=== PATIENT | male | born 1975 | race Caucasian/White ===

== ENCOUNTER 2016-08-04 05:53 | Inpatient (IN) | payer OTHER ==
[2016-08-04] MEDS ORDERED: ALBUTEROL SULFATE 0.083% NEB 2.5 MG/3 ML AMPUL NEB ONE ×2 (06:00→10:06)
[2016-08-04] MEDS ORDERED: IPRATROPIUM/ALBUTEROL 0.5-2.5 MG/3 ML AMPUL NEB ONE ×2 (06:00→07:44)
[2016-08-04] MEDS ORDERED: METHYLPREDNISOLONE INJ 125 MG/2 ML SDV ONE (06:02)
[2016-08-04] MEDS ORDERED: MAGNESIUM SULFATE/D5W 2 GM/200 ML RTUPB IV ONE (06:02)
--- NOTE | 2016-08-04 06:15 | ER Document Report ---
ED Respiratory Problem - General Mode of Arrival: Ambulatory Information source: Patient - HPI Patient complains to provider of: Short of breath Onset: Just prior to arrival Duration: Worse/persistent Severity: Moderate Associated symptoms: None Similar symptoms previously: No <TAM MILES - Last Filed: 08/04/16 07:04> <TERESA MAHMOOD - Last Filed: 08/04/16 11:19> - General Chief Complaint: Respiratory Distress Stated Complaint: BREATHING DIFFICULTY Time Seen by Provider: 08/04/16 06:07 Notes: Patient is a 41 year old male that presents to the emergency department today in moderate respiratory distress secondary to shortness of breath. Patient states he became lightheaded as well with this shortness of breath. Patient denies any chest pain or cough. Patient states he had childhood asthma. Patient denies smoking. Patient states he has not had a fever. (TAM MILES) - Related Data Allergies/Adverse Reactions: No Known Allergies Allergy (Verified 04/17/12 14:15) Past Medical History - General Information source: Patient - Social History Smoking Status: Never Smoker Cigarette use (# per day): No Frequency of alcohol use: None Drug Abuse: None Lives with: Family Family History: Reviewed & Not Pertinent Pulmonary Medical History: Reports: Hx Asthma - as a child Psychiatric Medical History: Reports: Hx Depression Past Surgical History: Reports: Hx Herniorrhaphy - as child, Hx Myringotomy, Other - Hemorrhoid removal - Immunizations Hx Diphtheria, Pertussis, Tetanus Vaccination: Yes <TAM MILES - Last Filed: 08/04/16 07:04> Review of Systems - Review of Systems Constitutional: denies: Fever EENT: No symptoms reported Cardiovascular: No symptoms reported. denies: Chest pain Respiratory: See HPI, Short of breath, Wheezing. denies: Cough Gastrointestinal: No symptoms reported Genitourinary: No symptoms reported Male Genitourinary: No symptoms reported Musculoskeletal: No symptoms reported Skin: No symptoms reported Hematologic/Lymphatic: No symptoms reported Neurological/Psychological: No symptoms reported -: Yes All other systems reviewed and negative <TAM MILES - Last Filed: 08/04/16 07:04> Physical Exam - General General appearance: Alert In distress: Moderate - HEENT Head: Normocephalic, Atraumatic Eyes: Normal Pupils: PERRL Ears: Normal External canal: Normal Tympanic membrane: Normal - Respiratory Respiratory status: Respiratory distress - moderate, Tachypnea Chest status: Nontender Breath sounds: Rales, Rhonchi, Other - upper airway rattling with forced cough Chest palpation: Normal - Cardiovascular Rhythm: Regular Heart sounds: Normal auscultation Murmur: No - Abdominal Inspection: Normal Distension: No distension Bowel sounds: Normal Tenderness: Nontender - Back Back: Normal, Nontender - Extremities General upper extremity: Normal inspection, Nontender. No: Edema General lower extremity: Normal inspection, Nontender. No: Edema - Neurological Neuro grossly intact: Yes Cognition: Normal Orientation: AAOx4 - Psychological Associated symptoms: Normal affect, Normal mood - Skin Skin Temperature: Warm Skin Moisture: Dry Skin Color: Normal <TAM MILES - Last Filed: 08/04/16 07:04> Course - Laboratory Result Diagrams: 08/04/16 06:05 08/04/16 06:05 <TAM MILES - Last Filed: 08/04/16 07:04> - Laboratory Result Diagrams: 08/04/16 06:05 08/04/16 06:05 - Diagnostic Test Radiology reviewed: Image reviewed, Reports reviewed - Chest x-ray does not show acute infiltrates, shows chronic interstitial lung disease - EKG Interpretation by Pr EKG shows normal: Sinus rhythm, [place], Intervals, QRS Complexes, ST-T Waves Rate: Normal - 97 Rhythm: NSR - Consults Telma Dominguez Time consulted: 11:15 Consulted provider: will come to ER <TERESA MAHMOOD - Last Filed: 08/04/16 11:19> - Re-evaluation Re-evalutation: 08/04/16 11:19 After full breathing treatments, mag sulfate, Solu-Medrol, the patient's lungs are sounding better, there is still rhonchi wheezes worse on the left. Pulse ox is 91% at rest on room air. Oxygen was turned up to 2 L and another breathing treatment was given. Pulse ox eventually went up to 97% on 2 L oxygen. (TERESA MAHMOOD) - Vital Signs Vital signs: Temp Pulse Resp BP Pulse Ox 97.7 F 95 18 116/77 94 08/04/16 06:00 08/04/16 06:00 08/04/16 09:45 08/04/16 09:00 08/04/16 09:45 - Laboratory Laboratory results interpreted by me: 08/04/16 08/04/16 08/04/16 06:05 06:05 07:35 WBC 11.2 H RBC 5.71 H Eosinophils % 6.9 H Absolute Eosinophils 0.8 H BUN 21 H Urine Ketones TRACE H Urine Urobilinogen 4.0 H Urine Ascorbic Acid 40 H Discharge <TAM MILES - Last Filed: 08/04/16 07:04> - Discharge Admitting Provider: Hospitalist Unit Admitted: [facility] <TERESA MAHMOOD - Last Filed: 08/04/16 11:19> - Discharge Clinical Impression: Acute asthmatic bronchitis, Chronic interstitial lung disease Condition: Stable Disposition: ADMITTED INPATIENT Scribe Documentation - Scribe Written by Scribe:: Karli Marvin, 08/04/2016 0638 acting as scribe for :: Alesha <TAM MILES - Last Filed: 08/04/16 07:04>
[2016-08-04 06:26] LABS: ABSOLUTE BASOPHILS # (AUTO) 0.1 10^3/uL (0.0-0.2); ABSOLUTE EOSINOPHILS # (AUTO) 0.8 10^3/uL (0.0-0.6); ABSOLUTE LYMPHOCYTES (AUTO) 2.5 10^3/uL (0.5-4.7); ABSOLUTE MONOCYTES (AUTO) 0.9 10^3/uL (0.1-1.4); ABSOLUTE NEUT (AUTO) 6.9 10^3/uL (1.7-8.2); BASOPHILS % (AUTO) 0.5 % (0-2); EOSINOPHILS % (AUTO) 6.9 % (0-6); HEMOGLOBIN 16.8 g/dL (13.5-17.0); HGB HCT DIFFERENCE 0.4; LYMPHOCYTES % (AUTO) 22.2 % (13-45); MEAN CORPUSCULAR HEMOGLOBIN 29.4 pg (27.0-33.4); MEAN CORPUSCULAR HGB CONC 33.5 g/dL (32.0-36.0); MEAN CORPUSCULAR VOLUME 88 fl (80-97); MONOCYTES % (AUTO) 8.5 % (3-13); RED BLOOD COUNT 5.71 10^6/uL (4.35-5.55); RED CELL DISTRIBUTION WIDTH 12.7 % (11.5-14.0); SEGMENTED NEUTROPHILS % (AUTO) 61.9 % (42-78); WHITE BLOOD COUNT 11.2 10^3/uL (4.0-10.5)
[2016-08-04 06:32] LABS: ALANINE AMINOTRANSFERASE 35 U/L (21-72); ALBUMIN 4.5 g/dL (3.5-5.0); ALKALINE PHOSPHATASE 97 U/L (38-126); ANION GAP 13 (5-19); ASPARTATE AMINO TRANSFERASE 26 U/L (17-59); BILIRUBIN,DIRECT 0.4 mg/dL (0.0-0.4); BILIRUBIN,TOTAL 0.7 mg/dL (0.2-1.3); BLOOD UREA NITROGEN 21 mg/dL (7-20); CALCIUM 9.6 mg/dL (8.4-10.2); CARBON DIOXIDE 26 mmol/L (22-30); CHLORIDE 104 mmol/L (98-107); CREATINE KINASE 117 U/L (55-170); CREATININE RESULT 1.06 mg/dL (0.52-1.25); GLUCOSE 99 mg/dL (75-110); POTASSIUM 4.3 mmol/L (3.6-5.0); SODIUM 142.9 mmol/L (137-145)
[2016-08-04 06:43] LABS: CREATINE KINASE MB 0.91 ng/mL (<4.55)
[2016-08-04 06:45] LABS: TROPONIN I < 0.012 ng/mL
--- NOTE | 2016-08-04 07:21 | RADIOLOGY REPORT (SQ) ---
EXAM DESCRIPTION: CHEST SINGLE VIEW COMPLETED DATE/TIME: 08/04/2016 7:04 am REASON FOR STUDY: SOB COMPARISON: 04/07/2012. EXAM PARAMETERS: NUMBER OF VIEWS: One view. TECHNIQUE: Single frontal radiographic view of the chest acquired. RADIATION DOSE: NA LIMITATIONS: None. FINDINGS: LUNGS AND PLEURA: Zqvz-da-zqrlsmvx interstitial markings. MEDIASTINUM AND HILAR STRUCTURES: No masses. Contour normal. HEART AND VASCULAR STRUCTURES: Heart normal in size. Normal vasculature. BONES: No acute findings. HARDWARE: None in the chest. OTHER: No other significant finding. IMPRESSION: Twxk-ad-[id number] interstitial markings with interval worsening may indicate mild pulmona ry edema and/or chronic interstitial lung disease. TECHNICAL DOCUMENTATION: JOB ID: [id number]
[2016-08-04 07:58] LABS: APPEARANCE,URINE CLEAR; BILIRUBIN,URINE NEGATIVE (NEGATIVE); GLUCOSE, URINE NEGATIVE (NEGATIVE); KETONES,URINE TRACE mg/dL (NEGATIVE); LEUKOCYTE ESTERASE,URINE NEGATIVE (NEGATIVE); NITRITE,URINE NEGATIVE (NEGATIVE); PROTEIN,URINE NEGATIVE (NEGATIVE); URINE SPECIFIC GRAVITY 1.015
[2016-08-04 08:06] LABS: RBC,URINE NONE SEEN /HPF
--- NOTE | 2016-08-04 08:42 | EKG REPORT ---
SEVERITY:- NORMAL ECG - SINUS RHYTHM : Confirmed by: Marquez Uriarte 04-Aug-2016 08:40:51
[2016-08-04] MEDS ORDERED: IPRATROPIUM/ALBUTEROL 0.5-2.5 MG/3 ML AMPUL NEB PRN (11:23)
[2016-08-04] MEDS: METHYLPREDNISOLONE INJ 125 MG/2 ML SDV IV SCH ×2 (15:26→21:11)
[2016-08-04] MEDS: IPRATROPIUM/ALBUTEROL 0.5-2.5 MG/3 ML AMPUL NEB SCH (16:28)
[2016-08-04] MEDS: ACETAMINOPHEN 325 MG TABLET PO PRN (17:35)
[2016-08-04] MEDS: BUDESONIDE NEB 0.5 MG/2 ML AMPUL NEB SCH (20:34)
[2016-08-04] MEDS: MONTELUKAST SODIUM 10 MG TABLET PO SCH (21:11)
[2016-08-04] MEDS: FAMOTIDINE 20 MG TABLET PO SCH (21:11)
[2016-08-05] MEDS: IPRATROPIUM/ALBUTEROL 0.5-2.5 MG/3 ML AMPUL NEB SCH ×4 (00:25→23:38)
[2016-08-05 04:58] LABS: ABSOLUTE LYMPHOCYTES (AUTO) 0.6 10^3/uL (0.5-4.7); ABSOLUTE MONOCYTES (AUTO) 0.2 10^3/uL (0.1-1.4); ABSOLUTE NEUT (AUTO) 10.4 10^3/uL (1.7-8.2); BASOPHILS % (AUTO) 0.1 % (0-2); HEMATOCRIT 45.2 % (37.9-51.0); HEMOGLOBIN 15.3 g/dL (13.5-17.0); HGB HCT DIFFERENCE 0.7; LYMPHOCYTES % (AUTO) 5.4 % (13-45); MEAN CORPUSCULAR HEMOGLOBIN 29.3 pg (27.0-33.4); MEAN CORPUSCULAR HGB CONC 33.8 g/dL (32.0-36.0); MEAN CORPUSCULAR VOLUME 87 fl (80-97); RED BLOOD COUNT 5.21 10^6/uL (4.35-5.55); RED CELL DISTRIBUTION WIDTH 13.1 % (11.5-14.0); SEGMENTED NEUTROPHILS % (AUTO) 92.5 % (42-78); WHITE BLOOD COUNT 11.3 10^3/uL (4.0-10.5)
[2016-08-05 05:16] LABS: ANION GAP 14 (5-19); BLOOD UREA NITROGEN 20 mg/dL (7-20); CARBON DIOXIDE 22 mmol/L (22-30); CHLORIDE 105 mmol/L (98-107); CREATININE RESULT 0.95 mg/dL (0.52-1.25); GLUCOSE 210 mg/dL (75-110); POTASSIUM 3.9 mmol/L (3.6-5.0); SODIUM 140.9 mmol/L (137-145)
[2016-08-05] MEDS: METHYLPREDNISOLONE INJ 125 MG/2 ML SDV IV SCH ×3 (06:52→21:23)
[2016-08-05] MEDS: BUDESONIDE NEB 0.5 MG/2 ML AMPUL NEB SCH ×2 (08:38→20:47)
[2016-08-05] MEDS: FAMOTIDINE 20 MG TABLET PO SCH ×2 (09:12→21:23)
[2016-08-05] MEDS: ENOXAPARIN SODIUM INJ 40 MG/0.4 ML DISP.SYRIN SUBCUT SCH (09:12)
[2016-08-05] MEDS: LORATADINE 10 MG TABLET PO SCH (09:12)
--- NOTE | 2016-08-05 10:52 | RADIOLOGY REPORT (SQ) ---
EXAM DESCRIPTION: CT CHEST WITHOUT COMPLETED DATE/TIME: 08/05/2016 10:30 am REASON FOR STUDY: DYSPNEA COMPARISON: None. TECHNIQUE: CT scan performed of the chest without intravenous contrast. Images reviewed with lung, soft tissue and bone windows. Reconstructed coronal and sagittal MPR images reviewed. All images st ored on PACS. All CT scanners at this facility use dose modulation, iterative reconstruction, and/or weight based d osing when appropriate to reduce radiation dose to as low as reasonably achievable (ALARA). [facility]: Dose Right [facility]: CareDose [facility]: Dose Right [facility]: Teradose 4D [facility]: [employer] RADIATION DOSE: Up-to-date CT equipment and radiation dose reduction techniques were employed. CTDIv ol: 10.4 mGy. DLP: 380 mGy-cm. mGy. LIMITATIONS: No technical limitations. FINDINGS: LUNGS AND PLEURA: The lungs are expanded and clear of infiltrate. Minimal interstitial pr ominence seen at the lung bases. No honeycombing. No edema. Linear atelectatic marking on the left . HILAR AND MEDIASTINAL STRUCTURES: No identified masses or abnormal nodes. No obvious aneurysm. HEART AND VASCULAR STRUCTURES: No aneurysm. No pericardial effusion. UPPER ABDOMEN: Mild gastric distention. THYROID AND OTHER SOFT TISSUES: No masses. No adenopathy. BONES: No significant finding. HARDWARE: None in the chest. OTHER: No other significant findings. IMPRESSION: No confluent infiltrates or edema. Minimal interstitial markings seen at the lung bases. TECHNICAL DOCUMENTATION: JOB ID: [id number] Quality ID # [id number]: Final reports with documentation of one or more dose reduction techniques (e.g., Au tomated exposure control, adjustment of the mA and/or kV according to patient size, use of iterative reconstruction technique) 2010 [employer]- All Rights Reserved
--- NOTE | 2016-08-05 10:55 | PDOC PROGRESS REPORT ---
Subjective Progress Note for:: 08/05/16 Subjective:: reason for visit: f/u bronchitis, acute asthma exac hospital course: presented to the ED with several day hx of progressive dyspnea and asct'd wheezing. he denies fevers, chills, cough with phlegm or chest pain. he has hx of childhood asthma and used to smoke until 7yrs ago. has a hx of "scarring in my lower lungs" and brought a ct chest with him that reportedly confirms these findings. His cxr here shows bilat bibasilar stranding that certainly could be scarring. he was admitted on high dose steroids and nebs with supplemental O2 and feels better this morning but no back to baseline. He continues to deny chest pain or tightness but still wheezing and easily winded with minimal exertion. 1of 2 bld cultures from eD show a GPC, likely contaminant. ROS: as above, all systems reviewed, remaining systems negative. Physical Exam Vital Signs: Temp Pulse Resp BP Pulse Ox 98.1 F 79 18 112/65 99 08/05/16 07:40 08/05/16 08:42 08/05/16 08:42 08/05/16 07:40 08/05/16 08:42 Intake & Output 08/04/16 08/05/16 08/06/16 06:59 06:59 06:59 Intake Total 1678 Output Total 1000 Balance 678 Weight 93.4 kg General appearance: PRESENT: no acute distress, well-developed, well-nourished Head exam: PRESENT: atraumatic, normocephalic Eye exam: PRESENT: EOMI. ABSENT: conjunctival injection, scleral icterus Mouth exam: PRESENT: moist, neck supple Neck exam: ABSENT: JVD Respiratory exam: PRESENT: crackles, decreased breath sounds, unlabored. ABSENT : accessory muscle use, wheezes Cardiovascular exam: PRESENT: RRR. ABSENT: tachycardia Pulses: PRESENT: normal radial pulses, normal dorsalis pedis pul GI/Abdominal exam: PRESENT: normal bowel sounds, soft. ABSENT: tenderness Extremities exam: ABSENT: calf tenderness, pedal edema Musculoskeletal exam: PRESENT: ambulatory, full ROM Neurological exam: PRESENT: alert, awake, oriented to person, oriented to place , oriented to time, oriented to situation Psychiatric exam: PRESENT: appropriate affect, normal mood Skin exam: PRESENT: warm. ABSENT: dry Results Laboratory Results: 08/05/16 04:26 08/05/16 04:26 08/05/16 08/05/16 04:26 04:26 WBC 11.3 H RBC 5.21 Hgb 15.3 Hct 45.2 MCV 87 MCH 29.3 MCHC 33.8 RDW 13.1 Plt Count 157 Seg Neutrophils % 92.5 H Lymphocytes % 5.4 L Monocytes % 2.0 L Eosinophils % 0.0 Basophils % 0.1 Absolute Neutrophils 10.4 H Absolute Lymphocytes 0.6 Absolute Monocytes 0.2 Absolute Eosinophils 0.0 Absolute Basophils 0.0 Sodium 140.9 Potassium 3.9 Chloride 105 Carbon Dioxide 22 Anion Gap 14 BUN 20 Creatinine 0.95 Est GFR ( Amer) > 60 Est GFR (Non-Af Amer) > 60 Glucose 210 H Calcium 10.0 08/05/16 04:26 NT-Pro-B Natriuret Pep 450 H Impressions: Chest X-Ray 08/04/16 06:13 IMPRESSION: Foyp-pz-rewbhdvd interstitial markings with interval worsening may indicate mild pulmonary edema and/or chronic interstitial lung disease. Status: Image reviewed by me - agree with rads Assessment & Plan - Diagnosis (1) Acute asthmatic bronchitis Is this a current diagnosis for this admission?: YesPlan: improved but not back to baseline; continue current care (2) Acute and chronic respiratory failure with hypoxia Is this a current diagnosis for this admission?: YesPlan: stable but not resolved, doesn't require home O2 (3) Chronic interstitial lung disease Is this a current diagnosis for this admission?: YesPlan: by hx; repeat CT scan to confirm any changes and try to download ct images from home into our system if possible (4) Positive blood culture Is this a current diagnosis for this admission?: YesPlan: likely contaminant; repeat and monitor. certainly isn't showing signs of bacteremia - Time Time Spent with patient: 25-34 minutes Medications reviewed and adjusted accordingly: Yes Anticipated discharge: Home Within: within 24 hours
[2016-08-05] MEDS: MONTELUKAST SODIUM 10 MG TABLET PO SCH (21:23)
[2016-08-05] MEDS: ACETAMINOPHEN 325 MG TABLET PO PRN (22:18)
[2016-08-06] MEDS: METHYLPREDNISOLONE INJ 125 MG/2 ML SDV IV SCH (06:30)
[2016-08-06] MEDS: BUDESONIDE NEB 0.5 MG/2 ML AMPUL NEB SCH (08:17)
[2016-08-06] MEDS: IPRATROPIUM/ALBUTEROL 0.5-2.5 MG/3 ML AMPUL NEB SCH (08:17)
[2016-08-06] MEDS: LORATADINE 10 MG TABLET PO SCH (09:30)
[2016-08-06] MEDS: FAMOTIDINE 20 MG TABLET PO SCH (09:45)
[2016-08-06] MEDS: ENOXAPARIN SODIUM INJ 40 MG/0.4 ML DISP.SYRIN SUBCUT SCH (09:45)
[2016-08-06 10:23] VITALS: BP 119/66
--- NOTE | 2016-08-06 12:16 | PDOC DISCHARGE SUMMARY ---
General - Admit/Disc Date/PCP Admission Date/Primary Care Provider: 08/04/16 11:23 Discharge Date: 08/06/16 - Discharge Diagnosis (1) Acute asthmatic bronchitis Is this a current diagnosis for this admission?: YesSummary: improved and nearly back to baseline; continue prednisone and home nebs and albuterol (2) Acute and chronic respiratory failure with hypoxia Is this a current diagnosis for this admission?: YesSummary: resolved (3) Chronic interstitial lung disease Is this a current diagnosis for this admission?: Yes (4) Positive blood culture Is this a current diagnosis for this admission?: YesSummary: contaminant; initial reports indicate f/u cultures no growth - Additional Information Resuscitation Status: Full Code Discharge Diet: As Tolerated Discharge Activity: Activity As Tolerated Home Medications: Acetaminophen [Tylenol 325 mg Tablet] 650 mg PO Q4HP PRN tablet 08/06/16 Albuterol Sulfate [Proair Respiclick] 90 mcg IH 5XDP PRN #1 aer.pow.ba 08/06/16 Ipratropium/Albuterol Sulfate [Duoneb 3 ml Ampul] 3 ml NEB RTQ4HP PRN #100 vial.neb 08/06/16 Loratadine [Claritin 10 mg Tablet] 10 mg PO DAILY tablet 08/06/16 Prednisone 20 mg PO BID #14 tablet 08/06/16 History of Present Illness Patient complains of: SOA History of Present Illness: NIMCO DONNELLY is a 41 year old male presented to the ED with several day hx of progressive dyspnea and asct'd wheezing. Hospital Course Hospital Course: he denies fevers, chills, cough with phlegm or chest pain. he has hx of childhood asthma and used to smoke until 7yrs ago. has a hx of "scarring in my lower lungs" and brought a ct chest with him that reportedly confirms these findings. His cxr here shows bilat bibasilar stranding that certainly could be scarring. he was admitted on high dose steroids and nebs with supplemental O2 and feels better this morning but no back to baseline. He continues to deny chest pain or tightness but still wheezing and easily winded with minimal exertion. 1of 2 bld cultures from eD show a GPC, likely contaminant. initial f/u cultures preliminary report shows no growth. overall he improved enough that he can transition home with continue steroids and home nebs and rescue inhaler. he is to increase activity as tolerated and return to the ED for worsening of his symtpoms. he expresses no concerns to me about going home at this time. Physical Exam Vital Signs: Temp Pulse Resp BP Pulse Ox 98.3 F 97 16 119/66 97 08/06/16 10:22 08/06/16 10:22 08/06/16 10:22 08/06/16 10:22 08/06/16 10:22 Intake & Output 08/05/16 08/06/16 08/07/16 06:59 06:59 06:59 Intake Total 1678 1896 Output Total 1000 476 Balance 678 1420 Weight 93.4 kg 94.6 kg General appearance: PRESENT: no acute distress, well-developed, well-nourished Eye exam: PRESENT: EOMI Respiratory exam: PRESENT: wheezes - faint exp wheeze on Right only GI/Abdominal exam: PRESENT: normal bowel sounds Musculoskeletal exam: PRESENT: ambulatory, full ROM Psychiatric exam: PRESENT: flat affect Skin exam: PRESENT: warm Results Laboratory Results: 08/05/16 04:26 08/05/16 04:26 08/04/16 12:16 Sputum Gram Stain - Final 08/04/16 12:16 Sputum Sputum Culture - Final 08/05/16 04:26 NT-Pro-B Natriuret Pep 450 H Impressions: Chest X-Ray 08/04/16 06:13 IMPRESSION: Iana-dk-awnqywyy interstitial markings with interval worsening may indicate mild pulmonary edema and/or chronic interstitial lung disease. Chest CT 08/05/16 00:00 IMPRESSION: No confluent infiltrates or edema. Minimal interstitial markings seen at the lung bases. Qualifiers PATEINT BEING DISCHARGED WITH ANY OF THE FOLLOWING DIAGNOSIS?: No VTE patient discharged on overlapping Therapy?: No Reason(s) for not prescribing Overlap Therapy:: Not indicated Plan Discharge Plan: home with RXs and f/u with PCP in one week to confirm clearing; return to the ED for worsening condition Time Spent: Greater than 30 Minutes
--- NOTE | 2016-08-17 13:35 | PDOC H&P ---
History of Present Illness Admission Date/PCP: 08/04/16 11:52 Patient complains of: Increasing shortness of breath and wheezing for the last 3 days History of Present Illness: NIMCO DONNELLY is a 41 year old male patient is a 41 year old male that presents to the emergency department today in moderate respiratory distress secondary to shortness of breath and wheezing. He states it has flared up from asthma recently. Patient states he became lightheaded as well with this shortness of breath. Patient denies any chest pain or cough. Patient states he had childhood asthma. Patient denies smoking. Patient states he has not had a fever. Past Medical History Cardiac Medical History: Reports: None Pulmonary Medical History: Reports: Asthma - as a child EENT Medical History: Reports: None Neurological Medical History: Reports: None Endocrine Medical History: Reports: None Renal/ Medical History: Reports: None Malignancy Medical History: Reports: None GI Medical History: Reports: None Musculoskeltal Medical History: Reports: None Skin Medical History: Reports: None Psychiatric Medical History: Reports: Depression Traumatic Medical History: Reports: None Hematology: Reports: None Infectious Medical History: Reports: None Past Surgical History Past Surgical History: Reports: Herniorrhaphy - as child, Other - Hemorrhoid removal Social History Information Source: Patient Lives with: Spouse/Significant other Smoking Status: Former Smoker Last Time Smoked: 7 years ago Frequency of Alcohol Use: Occasional Hx Recreational Drug Use: No - Advance Directive Resuscitation Status: Full Code Surrogate healthcare decision maker:: Significant other, Family History Family History: Reviewed & Not Pertinent Parental Family History Reviewed: Yes Children Family History Reviewed: Yes Sibling(s) Family History Reviewed.: Yes Medication/Allergy Home Medications: Ondansetron [Zofran Odt 4 mg Tablet] 1 tab PO Q6H #15 tab.rapdis 11/05/11 Alprazolam [Xanax 1 mg Tablet] 1 mg PO PRN PRN 11/17/11 Cyclobenzaprine HCl [Flexeril 10 Mg Tablet] 10 mg PO PRN PRN 11/17/11 Hydrocodone Bit/Acetaminophen [Vicodin 5-500 Tablet] 1 each PO PRN PRN 11/17/11 Hydrocodone Bit/Acetaminophen [Vicodin 5-500 mg Tablet] 1 - 2 tab PO ASDIR PRN # 15 tablet 11/17/11 Methocarbamol [Robaxin 500 Mg Tablet] 500 mg PO QID PRN #60 tablet 11/17/11 Multivitamin [Multivitamins] 1 each PO DAILY 11/17/11 Sertraline HCl [Zoloft 50 Mg Tablet] 50 mg PO PRN PRN 11/17/11 Oxycodone HCl/Acetaminophen [Percocet 5-325 mg Tablet] 1 - 2 tab PO ASDIR PRN # 20 tablet 04/07/12 Hydrocortisone Acetate [Anusol-Hc] 25 mg RC BID #24 supp.rect 04/17/12 Allergies/Adverse Reactions: No Known Allergies Allergy (Verified 04/17/12 14:15) Review of Systems Constitutional: ABSENT: chills, fever(s), headache(s), weight gain, weight loss Eyes: ABSENT: visual disturbances Ears: ABSENT: hearing changes Cardiovascular: ABSENT: chest pain, dyspnea on exertion, edema, orthropnea, palpitations Respiratory: PRESENT: cough, dyspnea, sputum Gastrointestinal: ABSENT: abdominal pain, constipation, diarrhea, hematemesis, hematochezia, nausea, vomiting Genitourinary: ABSENT: dysuria, hematuria Musculoskeletal: ABSENT: joint swelling Neurological: ABSENT: abnormal gait, abnormal speech, confusion, dizziness, focal weakness, syncope Hematologic/Lymphatic: ABSENT: easy bleeding, easy bruising Physical Exam Vital Signs: Temp Pulse Resp BP Pulse Ox 97.7 F 95 14 115/73 98 08/04/16 11:47 08/04/16 06:00 08/04/16 11:00 08/04/16 11:00 08/04/16 11:00 General appearance: PRESENT: no acute distress, well-developed, well-nourished Head exam: PRESENT: atraumatic, normocephalic Eye exam: PRESENT: conjunctiva pink, EOMI, PERRLA. ABSENT: scleral icterus Ear exam: PRESENT: normal external ear exam Mouth exam: PRESENT: moist, tongue midline Neck exam: ABSENT: carotid bruit, JVD, lymphadenopathy, thyromegaly Respiratory exam: PRESENT: clear to auscultation enoch. ABSENT: rales, rhonchi, wheezes Cardiovascular exam: PRESENT: RRR. ABSENT: diastolic murmur, rubs, systolic murmur Pulses: PRESENT: normal dorsalis pedis pul Vascular exam: PRESENT: normal capillary refill GI/Abdominal exam: PRESENT: normal bowel sounds, soft. ABSENT: distended, guarding, mass, organolmegaly, rebound, tenderness Rectal exam: PRESENT: deferred Extremities exam: PRESENT: full ROM. ABSENT: calf tenderness, clubbing, pedal edema Neurological exam: PRESENT: alert, awake, oriented to person, oriented to place , oriented to time, oriented to situation, CN II-XII grossly intact. ABSENT: motor sensory deficit Psychiatric exam: PRESENT: appropriate affect, normal mood. ABSENT: homicidal ideation, suicidal ideation Skin exam: PRESENT: dry, intact, warm. ABSENT: cyanosis, rash Results Impressions: Chest X-Ray 08/04/16 06:13 IMPRESSION: Lbbk-ji-njghdfza interstitial markings with interval worsening may indicate mild pulmonary edema and/or chronic interstitial lung disease. Assessment & Plan - Diagnosis (1) Acute asthmatic bronchitis Is this a current diagnosis for this admission?: YesPlan: Duoneb nebulizers, IV steroids, and allergic (2) Chronic interstitial lung disease Is this a current diagnosis for this admission?: Yes
== END 2016-08-06 11:01 | disposition home or self-care (01) | DRG 202 ==
LOC: ER 05:53 → EH 11:23 → UNDOADMIN 11:52 → EH 11:52 → 3S 13:00
PROVIDERS: ADMIT Family Medicine; ATTEND Family Medicine
DX: J45.901 Unspecified asthma with (acute) exacerbation (principal); J96.21 Acute and chronic respiratory failure with hypoxia; J84.9 Interstitial pulmonary disease, unspecified; Z87.891 Personal history of nicotine dependence; Z79.899 Other long term (current) drug therapy
CPT/HCPCS: 36415; 71010; 71250; 80048; 80053; 81001; 82550; 82553; 83880; 84484; 85025; 85379; 87040; 87070; 87077; 87186; 87205; 93005; 93010; 94640; 96374; 96375; 99285; J2930; J3475; J3490; J7620

== ENCOUNTER 2016-11-06 10:32 | Emergency (ER) | payer SELFPAY ==
[2016-11-06 11:19] LABS: ABSOLUTE LYMPHOCYTES (AUTO) 0.4 10^3/uL (0.5-4.7); ABSOLUTE MONOCYTES (AUTO) 0.1 10^3/uL (0.1-1.4); BASOPHILS % (AUTO) 0.2 % (0-2); HEMATOCRIT 46.7 % (37.9-51.0); HEMOGLOBIN 15.9 g/dL (13.5-17.0); LYMPHOCYTES % (AUTO) 7.9 % (13-45); MEAN CORPUSCULAR HGB CONC 34.1 g/dL (32.0-36.0); MEAN CORPUSCULAR VOLUME 88 fl (80-97); MONOCYTES % (AUTO) 1.4 % (3-13); RED BLOOD COUNT 5.31 10^6/uL (4.35-5.55); RED CELL DISTRIBUTION WIDTH 12.6 % (11.5-14.0); SEGMENTED NEUTROPHILS % (AUTO) 90.5 % (42-78); WHITE BLOOD COUNT 5.5 10^3/uL (4.0-10.5)
--- NOTE | 2016-11-06 11:28 | RADIOLOGY REPORT (SQ) ---
EXAM DESCRIPTION: U/S ABDOMEN LIMITED W/O DOP COMPLETED DATE/TIME: 11/06/2016 11:20 am REASON FOR STUDY: ruq pain COMPARISON: None. TECHNIQUE: Dynamic and static grayscale images acquired of the right upper quadrant and recorded on PACS. Additional selected color Doppler and spectral images recorded. LIMITATIONS: Study limited due to acoustical interference from fat or from air in the bowel. FINDINGS: PANCREAS: Visualized pancreas and duct normal. Parts of pancreas poorly seen secondary to acoustical interference from fat or from air in the bowel. LIVER: No masses. Echotexture normal. LIVER VASCULATURE: Normal directional flow of the main portal vein and hepatic veins. GALLBLADDER: No stones. Normal wall thickness. No pericholecystic fluid. ULTRASOUND-DETECTED RUIZ'S SIGN: Negative. INTRAHEPATIC DUCTS AND COMMON DUCT: CBD and intrahepatic ducts normal caliber. No filling defects. INFERIOR VENA CAVA: Normal flow. AORTA: No aneurysm. RIGHT KIDNEY: Normal size. Normal echogenicity. No solid or suspicious masses. No hydronephrosis. No calcifications. PERITONEAL CAVITY AND RIGHT PLEURAL SPACE: No ascites or effusions. OTHER: No other significant finding. IMPRESSION: NORMAL RIGHT UPPER QUADRANT ULTRASOUND. PANCREAS PARTIALLY OBSCURED BY GAS. TECHNICAL DOCUMENTATION: JOB ID: [id number] [employer]- All Rights Reserved
[2016-11-06 11:40] LABS: ALANINE AMINOTRANSFERASE 37 U/L (21-72); ALBUMIN 4.3 g/dL (3.5-5.0); ALKALINE PHOSPHATASE 65 U/L (38-126); ANION GAP 13 (5-19); ASPARTATE AMINO TRANSFERASE 23 U/L (17-59); BILIRUBIN,DIRECT 0.3 mg/dL (0.0-0.4); BILIRUBIN,TOTAL 0.4 mg/dL (0.2-1.3); BLOOD UREA NITROGEN 21 mg/dL (7-20); CALCIUM 9.8 mg/dL (8.4-10.2); CARBON DIOXIDE 23 mmol/L (22-30); CHLORIDE 107 mmol/L (98-107); CREATININE RESULT 0.98 mg/dL (0.52-1.25); GLUCOSE 203 mg/dL (75-110); LIPASE 50.3 U/L (23-300); POTASSIUM 4.6 mmol/L (3.6-5.0); SODIUM 143.2 mmol/L (137-145); TOTAL PROTEIN 7.1 g/dL (6.3-8.2)
--- NOTE | 2016-11-06 12:36 | ER Document Report ---
ED General - General Chief Complaint: Abdominal Pain Stated Complaint: UPPER GASTRIC PAIN,NAUSEA Time Seen by Provider: 11/06/16 10:49 Mode of Arrival: Ambulatory Information source: Patient Notes: 41-year-old male presents with right upper quadrant abdominal pain of 2 months duration. Patient notes pain worsens with eating has any fevers or chills denies any nausea vomiting or diarrhea at this time intermittently will have vomiting episodes. Patient denies any history of any gallbladder issues TRAVEL OUTSIDE OF THE [place] IN LAST 30 DAYS: No - HPI Onset: Other Onset/Duration: Intermittent Quality of pain: Cramping Severity: Mild Pain Level: 1 Associated symptoms: Nausea, Vomiting Exacerbated by: Food Relieved by: Denies Similar symptoms previously: Yes Recently seen / treated by doctor: Yes - Related Data Allergies/Adverse Reactions: No Known Allergies Allergy (Verified 11/06/16 10:36) Home Medications: Current Home Medications Aspirin [Aspirin EC] 81 mg PO DAILY 11/06/16 [History] Ferrous Sulfate [Iron] 325 mg PO DAILY 11/06/16 [History] Past Medical History - Social History Smoking Status: Never Smoker Cigarette use (# per day): No Chew tobacco use (# tins/day): No Smoking Education Provided: No Frequency of alcohol use: Occasional Drug Abuse: None Family History: Reviewed & Not Pertinent Pulmonary Medical History: Reports: Hx Asthma - as a child Renal/ Medical History: Denies: Hx Peritoneal Dialysis Psychiatric Medical History: Reports: Hx Depression Past Surgical History: Reports: Hx Herniorrhaphy - as child, Hx Myringotomy, Other - Hemorrhoid removal - Immunizations Hx Diphtheria, Pertussis, Tetanus Vaccination: Yes Review of Systems - Review of Systems Notes: REVIEW OF SYSTEMS: CONSTITUTIONAL : Denies fever, chills, or sweats. Denies recent illness. EENT: Denies eye, ear, throat, or mouth pain or symptoms. Denies nasal or sinus congestion or discharge. Denies throat, tongue, or mouth swelling or difficulty swallowing. CARDIOVASCULAR: Denies chest pain. Denies palpitations or racing or irregular heart beat. Denies ankle edema. RESPIRATORY: Denies cough, cold, or chest congestion. Denies shortness of breath, difficulty breathing, or wheezing. GASTROINTESTINAL: Admits to right upper quadrant abdominal pain nausea GENITOURINARY: Denies difficulty urinating, painful urination, burning, frequency, blood in urine, or discharge. MUSCULOSKELETAL: Denies back or neck pain or stiffness. Denies joint pain or swelling. SKIN: Denies rash, lesions or sores. HEMATOLOGIC : Denies easy bruising or bleeding. LYMPHATIC: Denies swollen, enlarged glands. NEUROLOGICAL: Denies confusion or altered mental status. Denies passing out or loss of consciousness. Denies dizziness or lightheadedness. Denies headache. Denies weakness or paralysis or loss of use of either side. Denies problems with gait or speech. Denies sensory loss, numbness, or tingling. Denies seizures. PSYCHIATRIC: Denies anxiety or stress. Denies depression, suicidal ideation, or homicidal ideation. ALL OTHER SYSTEMS REVIEWED AND NEGATIVE. Dictation was performed using [employer] voice recognition software PHYSICAL EXAMINATION: GENERAL: Well-appearing, well-nourished and in no acute distress. HEAD: Atraumatic, normocephalic. EYES: Pupils equal round and reactive to light, extraocular movements intact, sclera anicteric, conjunctiva are normal. ENT: Nares patent, oropharynx clear without exudates. Moist mucous membranes. NECK: Normal range of motion, supple without lymphadenopathy LUNGS: Breath sounds clear to auscultation bilaterally and equal. No wheezes rales or rhonchi. HEART: Regular rate and rhythm without murmurs ABDOMEN: Soft, nontender, nondistended abdomen. No guarding, no rebound. No masses appreciated. Musculoskeletal: Normal range of motion, no pitting or edema. No cyanosis. NEUROLOGICAL: Cranial nerves grossly intact. Normal speech, normal gait. Normal sensory, motor exams PSYCH: Normal mood, normal affect. SKIN: Warm, Dry, normal turgor, no rashes or lesions noted. Physical Exam - Vital signs Vitals: Temp Pulse Resp BP Pulse Ox 97.7 F 97 18 130/75 H 96 11/06/16 10:36 11/06/16 10:36 11/06/16 10:36 11/06/16 10:36 11/06/16 10:36 Course - Re-evaluation Re-evalutation: 11/06/16 15:28 Ultrasound noted no significant abnormality however given patient's pain it may be secondary to abnormality of the function of the gallbladder, patient is being and follow with surgery as well as primary care physician given that his glucose is slightly elevated, hemoglobin A1c was ordered. 11/06/16 15:30 Patient denies a history of diabetes and must watch closely I have explained to him diet changes as well After performing a Medical Screening Examination, I estimate there is LOW risk for ACUTE APPENDICITIS, BOWEL OBSTRUCTION, ACUTE CHOLECYSTITIS, PERFORATED DIVERTICULITIS, INCARCERATED HERNIA, PANCREATITIS, or PERFORATED ULCER, thus I consider the discharge disposition reasonable. Also, there is no evidence or peritonitis, sepsis, or toxicity. I have reevaluated this patient multiple times and no significant life threatening changes are noted. The patient and I have discussed the diagnosis and risks, and we agree with discharging home with close follow-up with the understanding that symptoms and presentations can change. We also discussed returning to the Emergency Department immediately if new or worsening symptoms occur. We have discussed the symptoms which are most concerning (e.g., bloody stool, fever, changing or worsening pain, intractable vomiting - standard verbal up date) that necessitate immediate return. - Vital Signs Vital signs: Temp Pulse Resp BP Pulse Ox 97.6 F 86 17 119/63 96 11/06/16 12:55 11/06/16 12:55 11/06/16 12:55 11/06/16 12:55 11/06/16 12:55 - Laboratory Result Diagrams: 11/06/16 10:54 11/06/16 10:54 Laboratory results interpreted by me: 11/06/16 11/06/16 10:54 10:54 Seg Neutrophils % 90.5 H Lymphocytes % 7.9 L Monocytes % 1.4 L Absolute Lymphocytes 0.4 L BUN 21 H Glucose 203 H - Diagnostic Test Radiology reviewed: Image reviewed, Reports reviewed - No acute abnormality Discharge - Discharge Clinical Impression: RUQ abdominal pain, Hyperglycemia Condition: Stable Disposition: HOME, SELF-CARE Instructions: Abdominal Pain ([facility]) Additional Instructions: Diabetes You have an abnormally high blood sugar, suspicious for diabetes. Not all high blood sugar requires long-term treatment. High blood sugar can be due to medications, , or the stress of illness. (These cases are "borderline diabetes.") If the doctor feels your high blood sugar might get better with time, you may not require treatment now. You will be scheduled for further evaluation. It's very important that you follow through. Uncontrolled high blood sugar leads to early heart disease , strokes, nerve damage, eye damage, and kidney damage. All diabetics should follow a diet designed to control the blood sugar. Overweight diabetics should exercise regularly and lose weight. If this is not sufficient to control the blood sugar, pills or insulin shots are necessary. Younger people who develop diabetes almost always require insulin daily. Home testing of blood sugars or urine sugar is required. Diabetic teaching is available to help you figure insulin doses and monitor the blood sugar. Call the physician if there is faintness, excess sleepiness, or very rapid breathing. If hypoglycemia (LOW blood sugar) develops, symptoms are shakiness, weakness, sweating, and confusion. In this case, you should eat or drink something with sugar at once. Referrals: NIRU REYNOLDS MD [ACTIVE STAFF] - Follow up as needed MISHA SALINAS MD [NO LOCAL MD] - Follow up tomorrow
[2016-11-06 13:30] VITALS: BP 119/63
== END 2016-11-06 12:55 | disposition home or self-care (01) ==
LOC: ER 10:32
DX: R10.11 Right upper quadrant pain (principal); R73.9 Hyperglycemia, unspecified; R11.0 Nausea; Z79.899 Other long term (current) drug therapy
CPT/HCPCS: 36415; 76705; 80053; 83036; 83690; 85025; 99284

== ENCOUNTER 2017-06-21 17:31 | Inpatient (IN) | payer SELFPAY ==
[2017-06-21] MEDS ORDERED: IPRATROPIUM/ALBUTEROL 0.5-2.5 MG/3 ML AMPUL NEB ONE ×2 (17:37→17:41)
[2017-06-21] MEDS ORDERED: TERBUTALINE SULFATE INJ/PF 1 MG/1 ML SDV SUBCUT ONE (17:38)
[2017-06-21] MEDS ORDERED: METHYLPREDNISOLONE INJ 125 MG/2 ML SDV ONE (17:41)
[2017-06-21] MEDS ORDERED: ALBUTEROL SULFATE 0.083% NEB 2.5 MG/3 ML AMPUL NEB ONE (17:41)
[2017-06-21] MEDS ORDERED: METHYLPREDNISOLONE INJ 125 MG/2 ML SDV IV ONE (17:42)
[2017-06-21] MEDS: MAGNESIUM SULFATE/D5W 1 GM/100 ML RTUPB IV SCH ×2 (17:46→17:54)
--- NOTE | 2017-06-21 17:47 | ER Document Report ---
ED Medical Screen (RME) - General Chief Complaint: Breathing Difficulty Stated Complaint: DIFFICULTY BREATHING Time Seen by Provider: 06/21/17 17:35 Notes: RAPID MEDICAL EVALUATION DISCLOSURE I have seen this patient as part of a Rapid Medical Evaluation and, if applicable, placed any initially appropriate orders. The patient will be seen and fully evaluated, including a full history and physical exam, by a provider ( in Main ED or Fast Track) when a room becomes available. 42-year-old male here with 4 days of shortness of breath wheezing chest tightness progressively worsening. He does not have insurance and is therefore unable to afford an inhaler or nebulizer machine. He has been taking over-the- counter "bronchial pills" from [employer] with minimal relief. I am unable to obtain further history/ROS due to the patient's respiratory distress EXAM Minimal to mild end expiratory wheezes Severely decreased aeration Accessory muscle usage Tachycardic NOTE Patient taken immediately back and main ED attending given [id number] report TRAVEL OUTSIDE OF THE [place] IN LAST 30 DAYS: No - Related Data Allergies/Adverse Reactions: No Known Allergies Allergy (Verified 11/06/16 10:36) Past Medical History Pulmonary Medical History: Reports: Hx Asthma - as a child Renal/ Medical History: Denies: Hx Peritoneal Dialysis Psychiatric Medical History: Reports: Hx Depression Past Surgical History: Reports: Hx Herniorrhaphy - as child, Hx Myringotomy, Other - Hemorrhoid removal - Immunizations Hx Diphtheria, Pertussis, Tetanus Vaccination: Yes
[2017-06-21 17:59] LABS: ABSOLUTE BASOPHILS # (AUTO) 0.1 10^3/uL (0.0-0.2); ABSOLUTE EOSINOPHILS # (AUTO) 0.2 10^3/uL (0.0-0.6); ABSOLUTE LYMPHOCYTES (AUTO) 1.3 10^3/uL (0.5-4.7); ABSOLUTE MONOCYTES (AUTO) 0.6 10^3/uL (0.1-1.4); ABSOLUTE NEUT (AUTO) 9.3 10^3/uL (1.7-8.2); BASOPHILS % (AUTO) 0.5 % (0-2); EOSINOPHILS % (AUTO) 1.7 % (0-6); HEMATOCRIT 50.5 % (37.9-51.0); HEMOGLOBIN 17.1 g/dL (13.5-17.0); LYMPHOCYTES % (AUTO) 11.2 % (13-45); MEAN CORPUSCULAR HGB CONC 33.8 g/dL (32.0-36.0); MEAN CORPUSCULAR VOLUME 86 fl (80-97); MONOCYTES % (AUTO) 5.6 % (3-13); PLATELET COUNT 249 10^3/uL (150-450); RED BLOOD COUNT 5.88 10^6/uL (4.35-5.55); TOTAL CELLS COUNTED % (AUTO) 100 %; WHITE BLOOD COUNT 11.5 10^3/uL (4.0-10.5)
[2017-06-21 18:11] LABS: ARTERIAL BLOOD BASE EXCESS -1.7 mmol/L; ARTERIAL BLOOD FIO2 ROOM AIR; ARTERIAL BLOOD H2CO3 1.23 mmol/L (1.05-1.35); ARTERIAL BLOOD HCO3 23.4 mmol/L (20-26); ARTERIAL BLOOD PCO2 40.8 mmHg (35-45); ARTERIAL BLOOD PH 7.38 (7.35-7.45); ARTERIAL BLOOD PO2 82.9 mmHg (80-100); ARTERIAL BLOOD TOTAL CO2 24.6 mmol/L (23-27)
[2017-06-21 18:15] LABS: ANION GAP 14 (5-19); BLOOD UREA NITROGEN 21 mg/dL (7-20); CALCIUM 10.1 mg/dL (8.4-10.2); CARBON DIOXIDE 27 mmol/L (22-30); CHLORIDE 106 mmol/L (98-107); GLUCOSE 129 mg/dL (75-110); POTASSIUM 4.3 mmol/L (3.6-5.0); SODIUM 147.3 mmol/L (137-145)
[2017-06-21] MEDS ORDERED: ACETAMINOPHEN 325 MG TABLET PO PRN (19:52)
[2017-06-21] MEDS ORDERED: GUAIFENESIN SYRP 200 MG/10 ML UDC PO PRN (19:52)
[2017-06-21] MEDS ORDERED: IPRATROPIUM/ALBUTEROL 0.5-2.5 MG/3 ML AMPUL NEB PRN (19:52)
[2017-06-21] MEDS ORDERED: HYDROCODONE BIT/HOMATROPINE SYRUP 5 ML UDCUP PO PRN (19:52)
[2017-06-21] MEDS ORDERED: HYDRALAZINE HCL INJ/PF 20 MG/1 ML SDV IV PRN (19:52)
--- NOTE | 2017-06-21 19:56 | ER Document Report ---
ED General - General Chief Complaint: Breathing Difficulty Stated Complaint: DIFFICULTY BREATHING Time Seen by Provider: 06/21/17 17:35 Mode of Arrival: Ambulatory Information source: Patient, Relative - significant other TRAVEL OUTSIDE OF THE [place] IN LAST 30 DAYS: No - HPI Patient complains to provider of: sob Onset: Other - 3 weeks Onset/Duration: Gradual, Worse Quality of pain: No pain Severity: Severe Associated symptoms: Nonproductive cough, Shortness of breath Similar symptoms previously: Yes Recently seen / treated by doctor: No Notes: Patient's has a history of asthma. He has been hospitalized in the past for the same. He does not have insurance and so does not have any medications for his asthma. He states for the past 3-4 weeks he has had shortness of breath and wheezing which she has been trying to deal with using [id number] remedies. His girlfriend states that tonight he became markedly short of breath when she brought him in here for evaluation - Related Data Allergies/Adverse Reactions: No Known Allergies Allergy (Verified 11/06/16 10:36) Past Medical History - General Information source: Patient, Relative - Social History Smoking Status: Never Smoker Chew tobacco use (# tins/day): No Drug Abuse: None Lives with: Family Family History: Reviewed & Not Pertinent Patient has suicidal ideation: No Patient has homicidal ideation: No - Past Medical History Cardiac Medical History: Reports: None Pulmonary Medical History: Reports: Hx Asthma - as a child EENT Medical History: Reports: None Neurological Medical History: Reports: None Endocrine Medical History: Reports: None Renal/ Medical History: Reports: None. Denies: Hx Peritoneal Dialysis Malignancy Medical History: Reports None GI Medical History: Reports: None Skin Medical History: Reports None Psychiatric Medical History: Reports: Hx Depression Traumatic Medical History: Reports: None Past Surgical History: Reports: Hx Herniorrhaphy - as child, Hx Myringotomy, Other - Hemorrhoid removal - Immunizations Hx Diphtheria, Pertussis, Tetanus Vaccination: Yes Review of Systems - Review of Systems Constitutional: No symptoms reported EENT: No symptoms reported Cardiovascular: No symptoms reported Respiratory: See HPI Gastrointestinal: No symptoms reported Genitourinary: No symptoms reported Male Genitourinary: No symptoms reported Musculoskeletal: No symptoms reported Skin: No symptoms reported Hematologic/Lymphatic: No symptoms reported Neurological/Psychological: No symptoms reported Physical Exam - Vital signs Vitals: Temp Pulse Resp BP Pulse Ox 98 F 139 H 16 119/76 95 06/21/17 17:35 06/21/17 17:35 06/21/17 17:35 06/21/17 17:35 06/21/17 17:35 - Notes Notes: PHYSICAL EXAMINATION: GENERAL: Is in marketed respiratory distress with accessory muscle use and diaphoresis HEAD: Atraumatic, normocephalic. EYES: Pupils equal round and reactive to light, extraocular movements intact, sclera anicteric, conjunctiva are normal. ENT: Nares patent, oropharynx clear without exudates. Moist mucous membranes. NECK: Normal range of motion, supple without lymphadenopathy LUNGS: Bilateral inspiratory and expiratory wheezing as well as rhonchi. HEART: Tachy murmurs appreciated ABDOMEN: Soft, nontender, nondistended abdomen. No guarding, no rebound. No masses appreciated. Musculoskeletal: Normal range of motion, no pitting or edema. No cyanosis. NEUROLOGICAL: Cranial nerves grossly intact. Normal speech. Normal sensory, motor exams PSYCH: Normal mood, normal affect. SKIN: Warm, Dry, normal turgor, no rashes or lesions noted. Course - Re-evaluation Re-evalutation: 06/21/17 19:55 Labs- All tests 24 hr 06/21/17 06/21/17 06/21/17 17:42 17:42 17:54 WBC 11.5 H RBC 5.88 H Hgb 17.1 H Hct 50.5 MCV 86 MCH 29.0 MCHC 33.8 RDW 13.0 Plt Count 249 Seg Neutrophils % 81.0 H Lymphocytes % 11.2 L Monocytes % 5.6 Eosinophils % 1.7 Basophils % 0.5 Absolute Neutrophils 9.3 H Absolute Lymphocytes 1.3 Absolute Monocytes 0.6 Absolute Eosinophils 0.2 Absolute Basophils 0.1 Carbonic Acid 1.23 HCO3/H2CO3 Ratio 19:1 ABG pH 7.38 ABG pCO2 40.8 ABG pO2 82.9 ABG HCO3 23.4 ABG Total CO2 24.6 ABG O2 Saturation 96.0 ABG Base Excess -1.7 FiO2 ROOM AIR Sodium 147.3 H Potassium 4.3 Chloride 106 Carbon Dioxide 27 Anion Gap 14 BUN 21 H Creatinine 1.02 Est GFR ( Amer) > 60 Est GFR (Non-Af Amer) > 60 Glucose 129 H Calcium 10.[address] Berrios. Will add on BNP and EKG. - Vital Signs Vital signs: Temp Pulse Resp BP Pulse Ox 98 F 139 H 21 H 117/78 93 06/21/17 17:35 06/21/17 17:35 06/21/17 19:00 06/21/17 19:00 06/21/17 19:00 - Laboratory Result Diagrams: 06/21/17 17:42 06/21/17 17:42 Laboratory results interpreted by me: 06/21/17 06/21/17 17:42 17:42 WBC 11.5 H RBC 5.88 H Hgb 17.1 H Seg Neutrophils % 81.0 H Lymphocytes % 11.2 L Absolute Neutrophils 9.3 H Sodium 147.3 H BUN 21 H Glucose 129 H Discharge - Discharge Clinical Impression: Asthma exacerbation Condition: Good Disposition: ADMITTED INPATIENT Admitting Provider: Hospitalist - Dr. Berrios Unit Admitted: Telemetry
--- NOTE | 2017-06-21 20:17 | RADIOLOGY REPORT (SQ) ---
EXAM DESCRIPTION: CHEST SINGLE VIEW COMPLETED DATE/TIME: 06/21/2017 7:37 pm REASON FOR STUDY: sob/wheezing COMPARISON: Chest x-ray 08/04/2016. EXAM PARAMETERS: NUMBER OF VIEWS: One view. TECHNIQUE: Single frontal radiographic view of the chest acquired. RADIATION DOSE: NA LIMITATIONS: None. FINDINGS: LUNGS AND PLEURA: No consolidation, pneumothorax or pleural effusion. MEDIASTINUM AND HILAR STRUCTURES: No masses. Contour normal. HEART AND VASCULAR STRUCTURES: Heart normal in size. Normal vasculature. BONES: No acute findings. HARDWARE: None in the chest. IMPRESSION: NO ACUTE RADIOGRAPHIC FINDING IN THE CHEST. TECHNICAL DOCUMENTATION: JOB ID: [id number]- All Rights Reserved Reading location - IP/workstation name: [email or web address]
[2017-06-21] MEDS ORDERED: CHLORPHENIRAMINE MALEATE 4 MG TABLET PO ONE (20:30)
[2017-06-21] MEDS: IPRATROPIUM/ALBUTEROL 0.5-2.5 MG/3 ML AMPUL NEB SCH (20:57)
[2017-06-21] MEDS ORDERED: FLUTICASONE NASAL SPRAY 50 MCG/SPRY 120 SPRAY/16 GM NASL ONE (21:00)
[2017-06-21] MEDS ORDERED: LEVOFLOXACIN 750 MG/D5W RTU 750 MG/150 ML RTUPB IV ONE (21:00)
[2017-06-21] MEDS ORDERED: PREDNISONE 20 MG TABLET PO ONE (21:00)
[2017-06-21] MEDS ORDERED: CHLORPHENIRAMINE MALEATE 4 MG TABLET ONE (21:19)
[2017-06-21] MEDS ORDERED: FLUTICASONE NASAL SPRAY 50 MCG/SPRY 120 SPRAY/16 GM ONE (21:20)
[2017-06-22] MEDS: IPRATROPIUM/ALBUTEROL 0.5-2.5 MG/3 ML AMPUL NEB SCH ×4 (01:05→19:35)
[2017-06-22] MEDS: HEPARIN SOD (PORCINE) 5,000 UNIT/ML 1 ML SYRINGE SUBCUT SCH ×4 (01:20→22:34)
[2017-06-22 05:28] LABS: ABSOLUTE LYMPHOCYTES (AUTO) 0.4 10^3/uL (0.5-4.7); ABSOLUTE MONOCYTES (AUTO) 0.1 10^3/uL (0.1-1.4); ABSOLUTE NEUT (AUTO) 5.4 10^3/uL (1.7-8.2); BASOPHILS % (AUTO) 0.2 % (0-2); HEMATOCRIT 45.7 % (37.9-51.0); HEMOGLOBIN 15.5 g/dL (13.5-17.0); LYMPHOCYTES % (AUTO) 6.7 % (13-45); MEAN CORPUSCULAR HEMOGLOBIN 29.2 pg (27.0-33.4); MEAN CORPUSCULAR HGB CONC 33.9 g/dL (32.0-36.0); MEAN CORPUSCULAR VOLUME 86 fl (80-97); MONOCYTES % (AUTO) 1.2 % (3-13); PLATELET COUNT 217 10^3/uL (150-450); RED BLOOD COUNT 5.32 10^6/uL (4.35-5.55); RED CELL DISTRIBUTION WIDTH 13.5 % (11.5-14.0); SEGMENTED NEUTROPHILS % (AUTO) 91.9 % (42-78); TOTAL CELLS COUNTED % (AUTO) 100 %; WHITE BLOOD COUNT 5.9 10^3/uL (4.0-10.5)
--- NOTE | 2017-06-22 05:48 | PDOC H&P ---
History of Present Illness Admission Date/PCP: 06/21/17 20:15 Patient complains of: Shortness of breath History of Present Illness: NIMCO DONNELLY is a 42 year old male with a past medical history of asthma, depression, benzodiazepine dependent anxiety and chronic pain. Patient presents with 12 hours of shortness of breath wheezing and paroxysms of cough. In the emergency room he has an unremarkable workup with exception to global wheeze he receives several albuterol treatments with Solu-Medrol and referred to the hospitalist for admission. Patient is unaware of his baseline peak flow or trigger, denies recent fever, chest pain, nausea vomiting. He denies recent change in medication regiment. Past Medical History Cardiac Medical History: Reports: None Pulmonary Medical History: Reports: Asthma - as a child EENT Medical History: Reports: None Neurological Medical History: Reports: None Endocrine Medical History: Reports: None Renal/ Medical History: Reports: None Malignancy Medical History: Reports: None GI Medical History: Reports: None Skin Medical History: Reports: None Psychiatric Medical History: Reports: Depression Traumatic Medical History: Reports: None Past Surgical History Past Surgical History: Reports: Herniorrhaphy - as child, Other - Hemorrhoid removal Social History Information Source: Patient Lives with: Family Smoking Status: Never Smoker Frequency of Alcohol Use: Occasional Hx Recreational Drug Use: No Drugs: None Hx Prescription Drug Abuse: No - Advance Directive Resuscitation Status: Full Code Family History Family History: COPD Parental Family History Reviewed: Yes Children Family History Reviewed: Yes Sibling(s) Family History Reviewed.: Yes Medication/Allergy Home Medications: Acetaminophen [Tylenol 325 mg Tablet] 650 mg PO Q4HP PRN tablet 08/06/16 Albuterol Sulfate [Proair Respiclick] 90 mcg IH 5XDP PRN #1 aer.pow.ba 08/06/16 Ipratropium/Albuterol Sulfate [Duoneb 3 ml Ampul] 3 ml NEB RTQ4HP PRN #100 vial.neb 08/06/16 Loratadine [Claritin 10 mg Tablet] 10 mg PO DAILY tablet 08/06/16 Aspirin [Aspirin EC] 81 mg PO DAILY 11/06/16 Ferrous Sulfate [Iron] 325 mg PO DAILY 11/06/16 Allergies/Adverse Reactions: No Known Allergies Allergy (Verified 11/06/16 10:36) Review of Systems Constitutional: ABSENT: chills, fever(s), headache(s), weight gain, weight loss Eyes: ABSENT: visual disturbances Ears: ABSENT: hearing changes Cardiovascular: ABSENT: chest pain, dyspnea on exertion, edema, orthropnea, palpitations Respiratory: ABSENT: cough, hemoptysis Gastrointestinal: ABSENT: abdominal pain, constipation, diarrhea, hematemesis, hematochezia, nausea, vomiting Genitourinary: ABSENT: dysuria, hematuria Musculoskeletal: ABSENT: joint swelling Integumentary: ABSENT: rash, wounds Neurological: ABSENT: abnormal gait, abnormal speech, confusion, dizziness, focal weakness, syncope Psychiatric: ABSENT: anxiety, depression, homidical ideation, suicidal ideation Endocrine: ABSENT: cold intolerance, heat intolerance, polydipsia, polyuria Hematologic/Lymphatic: ABSENT: easy bleeding, easy bruising Physical Exam Vital Signs: Temp Pulse Resp BP Pulse Ox 97.6 F 103 H 20 119/67 96 06/21/17 23:47 06/22/17 02:00 06/22/17 01:20 06/21/17 23:47 06/22/17 04:00 Pulse Oximeter Continuous Start: 06/21/17 19: 52 Freq: RTQ4 Status: Active Document 06/22/17 04:00 STI (Rec: 06/22/17 04:52 STI [email or web address]) Pulse Oximetry Assessment Oxygen Saturation (92-100) 96 Oxygen Delivery Method Room Air Fraction of Inspired Oxygen (FIO2) 21 Equipment Usage Equipment in Use Continuous SpO2 Machine # 3 Intake & Output 06/20/17 06/21/17 06/22/17 11:59 11:59 11:59 Intake Total 222 Balance 222 General appearance: PRESENT: no acute distress, well-developed, well-nourished Head exam: PRESENT: atraumatic, normocephalic Eye exam: PRESENT: conjunctiva pink, EOMI, PERRLA. ABSENT: scleral icterus Ear exam: PRESENT: normal external ear exam Mouth exam: PRESENT: moist, tongue midline Neck exam: ABSENT: carotid bruit, JVD, lymphadenopathy, thyromegaly Respiratory exam: PRESENT: accessory muscle use, retraction, wheezes. ABSENT: rales, rhonchi Cardiovascular exam: PRESENT: RRR. ABSENT: diastolic murmur, rubs, systolic murmur Pulses: PRESENT: normal dorsalis pedis pul Vascular exam: PRESENT: normal capillary refill GI/Abdominal exam: PRESENT: normal bowel sounds, soft. ABSENT: distended, guarding, mass, organolmegaly, rebound, tenderness Rectal exam: PRESENT: deferred Extremities exam: PRESENT: full ROM. ABSENT: calf tenderness, clubbing, pedal edema Neurological exam: PRESENT: alert, awake, oriented to person, oriented to place , oriented to time, oriented to situation, CN II-XII grossly intact. ABSENT: motor sensory deficit Psychiatric exam: PRESENT: anxious, normal mood. ABSENT: homicidal ideation, suicidal ideation Skin exam: PRESENT: dry, intact, warm. ABSENT: cyanosis, rash Results Impressions: Chest X-Ray 06/21/17 19:04 IMPRESSION: NO ACUTE RADIOGRAPHIC FINDING IN THE CHEST. Assessment & Plan - Diagnosis (1) Asthma exacerbation Is this a current diagnosis for this admission?: Yes Plan: Denies GERD, albuterol, Atrovent, prednisone. Obtain peak flow (2) Acute asthmatic bronchitis Is this a current diagnosis for this admission?: Yes Plan: Empiric antibiotic (3) Anxiety Is this a current diagnosis for this admission?: Yes Plan: Contributing comorbidity of unclear significance. Trazodone as needed - Time Time Spent: 30 to 50 Minutes
[2017-06-22 05:57] LABS: ANION GAP 18 (5-19); BLOOD UREA NITROGEN 18 mg/dL (7-20); CALCIUM 9.9 mg/dL (8.4-10.2); CARBON DIOXIDE 23 mmol/L (22-30); CHLORIDE 103 mmol/L (98-107); GLUCOSE 286 mg/dL (75-110); POTASSIUM 3.9 mmol/L (3.6-5.0)
--- NOTE | 2017-06-22 06:07 | EKG REPORT ---
SEVERITY:- OTHERWISE NORMAL ECG - SINUS TACHYCARDIA : Confirmed by: Rigo Cuevas MD 22-Jun-2017 06:07:33
[2017-06-22] MEDS ORDERED: LEVOFLOXACIN 750 MG/D5W RTU 750 MG/150 ML RTUPB IV SCH (10:00)
[2017-06-22] MEDS: PREDNISONE 20 MG TABLET PO SCH ×2 (11:01→17:28)
[2017-06-22] MEDS: FLUTICASONE NASAL SPRAY 50 MCG/SPRY 120 SPRAY/16 GM NASL SCH ×2 (11:02→22:34)
--- NOTE | 2017-06-22 13:43 | PDOC PROGRESS REPORT ---
Subjective Progress Note for:: 06/22/17 Subjective:: On room air. States he feels essentially unchanged. Reason For Visit: COPD EXACERBATION ACUTE ON CHRONIC BRONCHITIS Physical Exam Vital Signs: Temp Pulse Resp BP Pulse Ox 98.4 F 98 16 99/56 L 97 06/22/17 11:47 06/22/17 11:47 06/22/17 11:47 06/22/17 11:47 06/22/17 12:00 Pulse Oximeter Continuous Start: 06/21/17 19: 52 Freq: RTQ4 Status: Active Document 06/22/17 12:00 LDA (Rec: 06/22/17 12:11 LDA [email or web address]) Pulse Oximetry Assessment Oxygen Saturation (92-100) 97 Oxygen Delivery Method Room Air Fraction of Inspired Oxygen (FIO2) 21 Equipment Usage Equipment in Use Continuous SpO2 Machine # [id number] Intake & Output 06/21/17 06/22/17 06/23/17 05:59 05:59 05:59 Intake Total 222 Balance 222 Weight 221 lb 1.978 oz General appearance: PRESENT: no acute distress, obese Respiratory exam: PRESENT: clear to auscultation enoch Cardiovascular exam: PRESENT: RRR GI/Abdominal exam: PRESENT: soft Extremities exam: ABSENT: pedal edema Neurological exam: PRESENT: alert Psychiatric exam: PRESENT: flat affect Skin exam: PRESENT: warm Results Laboratory Results: 06/22/17 03:54 06/22/17 03:54 06/22/17 06/22/17 03:54 03:54 WBC 5.9 RBC 5.32 Hgb 15.5 Hct 45.7 MCV 86 MCH 29.2 MCHC 33.9 RDW 13.5 Plt Count 217 Seg Neutrophils % 91.9 H Lymphocytes % 6.7 L Monocytes % 1.2 L Eosinophils % 0.0 Basophils % 0.2 Absolute Neutrophils 5.4 Absolute Lymphocytes 0.4 L Absolute Monocytes 0.1 Absolute Eosinophils 0.0 Absolute Basophils 0.0 Sodium 144.0 Potassium 3.9 Chloride 103 Carbon Dioxide 23 Anion Gap 18 BUN 18 Creatinine 0.93 Est GFR ( Amer) > 60 Est GFR (Non-Af Amer) > 60 Glucose 286 H Calcium 9.9 Impressions: Chest X-Ray 06/21/17 19:04 IMPRESSION: NO ACUTE RADIOGRAPHIC FINDING IN THE CHEST. Assessment & Plan - Diagnosis (1) Asthma exacerbation Qualifiers: Asthma severity: mild Asthma persistence: intermittent Qualified Code(s) : J45.21 - Mild intermittent asthma with (acute) exacerbation Is this a current diagnosis for this admission?: Yes Plan: Does not appear to be all that severe to me. However, as he is uncomfortable going home I will keep him overnight and continue aggressive nebulizers, steroids, pulmonary toilet. (2) Anxiety Is this a current diagnosis for this admission?: Yes Plan: I suspect this plays a significant role
[2017-06-23] MEDS: IPRATROPIUM/ALBUTEROL 0.5-2.5 MG/3 ML AMPUL NEB SCH ×2 (01:40→08:40)
[2017-06-23] MEDS: HEPARIN SOD (PORCINE) 5,000 UNIT/ML 1 ML SYRINGE SUBCUT SCH (06:22)
[2017-06-23] MEDS: PREDNISONE 20 MG TABLET PO SCH (09:49)
[2017-06-23] MEDS: FLUTICASONE NASAL SPRAY 50 MCG/SPRY 120 SPRAY/16 GM NASL SCH (09:50)
[2017-06-23] MEDS ORDERED: LEVOFLOXACIN 500 MG TABLET PO SCH (10:00)
[2017-06-23 12:51] VITALS: BP 106/60
--- NOTE | 2017-06-23 15:08 | PDOC DISCHARGE SUMMARY ---
General - Admit/Disc Date/PCP Admission Date/Primary Care Provider: 06/21/17 20:15 Discharge Date: 06/23/17 - Discharge Diagnosis (1) Asthma exacerbation Is this a current diagnosis for this admission?: Yes Summary: Treated with prednisone and Levaquin, nebulizers. He has been on room air since the ER. I will discharge him with Advair, short course of steroids and Levaquin, and a rescue inhaler. (2) Anxiety Is this a current diagnosis for this admission?: Yes - Additional Information Resuscitation Status: Full Code Discharge Diet: As Tolerated Discharge Activity: Activity As Tolerated Prescriptions: Albuterol Sulfate [Proair HFA Inhalation Aerosol 8.5 gm MDI] 1 puff IH Q4 PRN # 1 mdi PRN Reason: Fluticasone/Salmeterol [Advair 250-50 Diskus 28 dose] 1 inh IH Q12H #1 inhaler Levofloxacin [Levaquin 500 mg Tablet] 500 mg PO DAILY #3 tablet Prednisone [Deltasone 20 mg Tablet] 20 mg PO BID #10 tablet Home Medications: Aspirin [Adult Low Dose Aspirin EC] 81 mg PO DAILY 06/22/17 Loratadine [Claritin 10 mg Tablet] 10 mg PO DAILY 06/22/17 Albuterol Sulfate [Proair HFA Inhalation Aerosol 8.5 gm MDI] 1 puff IH Q4 PRN # 1 mdi 06/23/17 Fluticasone Propionate [Flonase Nasal [place] 50 Mcg/[place] 16 gm] 2 spray NASL Q12 spray.pump 06/23/17 Fluticasone/Salmeterol [Advair 250-50 Diskus 28 dose] 1 inh IH Q12H #1 inhaler 06/23/17 Levofloxacin [Levaquin 500 mg Tablet] 500 mg PO DAILY #3 tablet 06/23/17 Prednisone [Deltasone 20 mg Tablet] 20 mg PO BID #10 tablet 06/23/17 History of Present Illness Patient complains of: Short of breath History of Present Illness: NIMCO DONNELLY is a 42 year old male with a past medical history of asthma, depression, benzodiazepine dependent anxiety and chronic pain. Patient presents with 12 hours of shortness of breath wheezing and paroxysms of cough. In the emergency room he has an unremarkable workup with exception to global wheeze he receives several albuterol treatments with Solu-Medrol and referred to the hospitalist for admission. Patient is unaware of his baseline peak flow or trigger, denies recent fever, chest pain, nausea vomiting. He denies recent change in medication regiment. Hospital Course Hospital Course: He was treated with steroids, nebulizers, Levaquin, and I think he can go home I will send him out with ERICKA Buckner. Outpatient follow-up Physical Exam Vital Signs: Temp Pulse Resp BP Pulse Ox 98.3 F 106 H 15 106/60 94 06/23/17 12:56 06/23/17 12:56 06/23/17 12:56 06/23/17 12:56 06/23/17 12:56 Pulse Oximeter Continuous Start: 06/21/17 19: 52 Freq: RTQ4 Status: Discharge Document 06/23/17 08:40 HCR (Rec: 06/23/17 10:31 HCR [email or web address]) Pulse Oximetry Assessment Oxygen Saturation (92-100) 94 Oxygen Flow Rate (L/min) 21 Oxygen Delivery Method Room Air Equipment Usage Equipment in Use Continuous SpO2 Machine # 3 Intake & Output 06/22/17 06/23/17 06/24/17 05:59 05:59 05:59 Intake Total 222 2019 Balance 222 2019 Weight 221 lb 1.978 oz 225 lb 8.526 oz General appearance: PRESENT: no acute distress, obese Respiratory exam: PRESENT: clear to auscultation enoch Cardiovascular exam: PRESENT: RRR GI/Abdominal exam: PRESENT: soft Neurological exam: PRESENT: alert Psychiatric exam: PRESENT: anxious Skin exam: PRESENT: warm Results Laboratory Results: 06/22/17 03:54 06/22/17 03:54 Impressions: Chest X-Ray 06/21/17 19:04 IMPRESSION: NO ACUTE RADIOGRAPHIC FINDING IN THE CHEST. Qualifiers - * PATIENT BEING DISCHARGED WITH ANY OF THE FOLLOWING DIAGNOSIS: No
== END 2017-06-23 13:30 | disposition home or self-care (01) | DRG 202 ==
LOC: ER 17:31 → EH 20:15 → 5 23:02
PROVIDERS: ADMIT Internal Medicine; ATTEND Internal Medicine
PROC: 3E0F73Z Introduction of Anti-inflammatory into Respiratory Tract, Via Natural or Artificial Opening (ICD-10-PCS; principal; 2017-06-21)
DX: J45.21 Mild intermittent asthma with (acute) exacerbation (principal); J44.1 Chronic obstructive pulmonary disease with (acute) exacerbation; J44.0 Chronic obstructive pulmonary disease with (acute) lower respiratory infection; F41.9 Anxiety disorder, unspecified; F32.9 Major depressive disorder, single episode, unspecified; G89.29 Other chronic pain; Z79.899 Other long term (current) drug therapy; Z79.82 Long term (current) use of aspirin; Z83.6 Family history of other diseases of the respiratory system
CPT/HCPCS: 36415; 71045; 80048; 82803; 83880; 85025; 87040; 93005; 93010; 94640; 94667; 94668; 94762; 94799; 96365; 96372; 96375; 99285; J1644; J1956; J2930; J3105; J3475; J3490; J7512; J7620

== ENCOUNTER 2019-05-10 22:07 | Emergency (ER) | payer SELFPAY ==
[2019-05-10 22:38] LABS: ABSOLUTE BASOPHILS # (AUTO) 0.1 10^3/uL (0.0-0.2); ABSOLUTE EOSINOPHILS # (AUTO) 0.1 10^3/uL (0.0-0.6); ABSOLUTE LYMPHOCYTES (AUTO) 1.7 10^3/uL (0.5-4.7); ABSOLUTE MONOCYTES (AUTO) 0.8 10^3/uL (0.1-1.4); BASOPHILS % (AUTO) 0.5 % (0-2); HEMATOCRIT 46.7 % (37.9-51.0); HEMOGLOBIN 15.8 g/dL (13.5-17.0); LYMPHOCYTES % (AUTO) 15.6 % (13-45); MEAN CORPUSCULAR HEMOGLOBIN 28.7 pg (27.0-33.4); MEAN CORPUSCULAR HGB CONC 33.7 g/dL (32.0-36.0); MEAN CORPUSCULAR VOLUME 85 fl (80-97); MONOCYTES % (AUTO) 7.9 % (3-13); PLATELET COUNT 266 10^3/uL (150-450); RED BLOOD COUNT 5.48 10^6/uL (4.35-5.55); RED CELL DISTRIBUTION WIDTH 12.6 % (11.5-14.0); TOTAL CELLS COUNTED % (AUTO) 100 %; WHITE BLOOD COUNT 10.6 10^3/uL (4.0-10.5)
[2019-05-10 22:54] LABS: ALBUMIN 4.3 g/dL (3.5-5.0); ALCOHOL 201 mg/dL (NONE DETECTED); ALKALINE PHOSPHATASE 90 U/L (38-126); ANION GAP 10 (5-19); ASPARTATE AMINO TRANSFERASE 35 U/L (17-59); BILIRUBIN,DIRECT 0.2 mg/dL (0.0-0.4); BILIRUBIN,TOTAL 0.3 mg/dL (0.2-1.3); BLOOD UREA NITROGEN 9 mg/dL (7-20); CALCIUM 9.7 mg/dL (8.4-10.2); CARBON DIOXIDE 28 mmol/L (22-30); CHLORIDE 103 mmol/L (98-107); GLUCOSE 153 mg/dL (75-110); POTASSIUM 3.7 mmol/L (3.6-5.0); TOTAL PROTEIN 7.9 g/dL (6.3-8.2)
--- NOTE | 2019-05-10 23:10 | RADIOLOGY REPORT (SQ) ---
EXAM DESCRIPTION: XR ANKLE 3 OR MORE VIEWS COMPLETED DATE/TME: 05/10/2019 00:00 CLINICAL HISTORY: 44 years Male ,ankle pain COMPARISON: None. TECHNIQUE: Right ankle, 3 view FINDINGS: No acute fractures or dislocations are identified. No osseous destructive lesions. No ankle joint effusion noted. Small amount of soft tissue swelling laterally. IMPRESSION: No acute fracture is identified. Small amount of soft tissue swelling laterally
[2019-05-10] MEDS ORDERED: PROMETHAZINE HCL INJ 25 MG/1 ML VIAL IM ONE (23:14)
[2019-05-10] MEDS ORDERED: NORMAL SALINE 1000 ML 1,000 ML IV ONE (23:16)
--- NOTE | 2019-05-10 23:18 | ER Document Report ---
ED General - General Chief Complaint: Ankle Injury Stated Complaint: RIGHT ANKLE INJURY/ETOH Time Seen by Provider: 05/10/19 23:04 Primary Care Provider: NNAMDI AN MD [ACTIVE STAFF] - Follow up as needed Notes: Patient is a 44-year-old male that comes emergency department for chief complaint of right ankle injury, alcohol intoxication, and restlessness. Patient states he feels really cold right now. Patient is a very poor historian, he states that he "kicked my dog and I hit something with my ankle and now it hurts". He denies head injury, chest pain, abdominal pain, or any other locations of pain. He states he also vomited several times prior to arrival. He denies fever, illness exposure, recent travel. He states he has a history of COPD/asthma, states he occasionally takes recreational drugs but n othing recently, he states that he was dropped off here by a friend. TRAVEL OUTSIDE OF THE [place] IN LAST 30 DAYS: No - Related Data Allergies/Adverse Reactions: No Known Allergies Allergy (Verified 11/06/16 10:36) Past Medical History - General Information source: Patient - Social History Smoking Status: Never Smoker Frequency of alcohol use: None Drug Abuse: None Lives with: Family Family History: COPD Patient has suicidal ideation: No Patient has homicidal ideation: No Pulmonary Medical History: Reports: Hx Asthma - as a child Renal/ Medical History: Denies: Hx Peritoneal Dialysis Psychiatric Medical History: Reports: Hx Depression Past Surgical History: Reports: Hx Herniorrhaphy - as child, Hx Myringotomy, Other - Hemorrhoid removal - Immunizations Hx Diphtheria, Pertussis, Tetanus Vaccination: Yes Review of Systems - Review of Systems Constitutional: See HPI EENT: No symptoms reported Cardiovascular: No symptoms reported Respiratory: No symptoms reported Gastrointestinal: See HPI Genitourinary: No symptoms reported Male Genitourinary: No symptoms reported Musculoskeletal: See HPI Skin: No symptoms reported Hematologic/Lymphatic: No symptoms reported Neurological/Psychological: See HPI Physical Exam - Vital signs Vitals: Resp 15 05/10/19 22:17 - Notes Notes: GENERAL: Restless, slurring words, difficult historian HEAD: Normocephalic, atraumatic. EYES: Pupils equal, round, and reactive to light. Extraocular movements intact. ENT: Oral mucosa moist, tongue midline. Oropharynx unremarkable. Airway patent. NECK: Full range of motion. Supple. Trachea midline. No lymphadenopathy. LUNGS: Clear to auscultation bilaterally, no wheezes, rales, or rhonchi. No respiratory distress. Non-tender chest wall. HEART: Regular rate and rhythm. No murmur ABDOMEN: Soft, non-tender. Non-distended. Bowel sounds present in all 4 quadrants. GENITOURINARY: Deferred EXTREMITIES: There is soft tissue swelling over the right lateral ankle at the lateral malleolus and slightly over the dorsum of the foot. Range of motion intact, no open wounds, normal distal neurovascular exam, normal dorsalis pedis. Normal leg, knee, hip exam. Otherwise unremarkable extremities. BACK: no cervical, thoracic, lumbar midline tenderness. No saddle anesthesia, normal distal neurovascular exam. Moves all extremities in full range of motion. NEUROLOGICAL: Alert and oriented x3. Slightly slurred speech. Cranial nerves II through XII grossly intact. Strength 5/5 in all extremities. PSYCH: Restless SKIN: Slightly flushed Course - Re-evaluation Re-evalutation: On initial evaluation patient is a very difficult historian, he does appear to have some soft tissue swelling over the right ankle from the kicking injury, his abdomen is soft and benign, his lungs are clear, he is restless and does smell of alcohol. He denies any other injuries, there is no other evidence of injury. Patient is still complaining of nausea, he was treated for this. He was given IV fluids as well. X-ray shows some soft tissue swelling but no fracture, CBC, chemistry, lipase unremarkable, alcohol is greater than 200. On reevaluation after medications patient is much improved, he will be reevaluated. Patient is now much more alert, much more talkative, much more coherent. He is no longer slurring his words. I discussed the details of his work-up, he was placed in ankle stirrup and Royer wrap, he was provided with GI cocktail on request, after this patient tolerated this well without any difficulty and states he is ready to go home. He is getting a ride home. Discussed follow-up and return precautions. Patient states understanding and agreement with plan. - Vital Signs Vital signs: Temp Pulse Resp BP Pulse Ox 98.5 F 15 109/81 97 05/10/19 22:21 05/11/19 02:01 05/11/19 02:00 05/11/19 02:00 - Laboratory Result Diagrams: 05/10/19 22:18 05/10/19 22:18 Laboratory results interpreted by me: 05/10/19 05/10/19 22:18 22:18 WBC 10.6 H Glucose 153 H Procedures - Immobilization right ankle Pre-Proc Neuro Vasc Exam: Normal Immobilizer type: Royer wrap, Ankle stirrup Performed by: PCT Post-Proc Neuro Vasc Exam: Normal Alignment checked and good: Yes Discharge - Discharge Clinical Impression: Right ankle injury Qualifiers: Encounter type: initial encounter Qualified Code(s): S99.911A - Unspecified injury of right ankle, initial encounter Vomiting Qualifiers: Vomiting type: unspecified Vomiting Intractability: non-intractable Nausea presence: with nausea Qualified Code(s): R11.2 - Nausea with vomiting, unspecified Alcohol intoxication Qualifiers: Complication of substance-induced condition: with unspecified complication Qualified Code(s): F10.929 - Alcohol use, unspecified with intoxication, unspecified Condition: Stable Disposition: HOME, SELF-CARE Additional Instructions: There is soft tissue swelling of your ankle but there is no broken bone or dislocation. I recommend the crutches, the royer wrap and ankle stirrup, ice 3-4 times a day, elevate, and you can take [id number] anti-inflammatories (with food, these can worsen stomach irritation which you have from the alcohol) for the stomach irritation from the alcohol (gastritis) I recommend to the Pepcid and take Zofran if needed for nausea, drink plenty of fluids, start with bland diet. Avoid drinking alcohol to intoxication. After 2 to 3 days ankle swelling will most likely resolve, when swelling and pain has resolved resume normal activity. If swelling continues follow-up with primary care or the orthopedics referral. Return for any concerning symptoms including uncontrolled vomiting, severe worsening pain or swelling, severe abdominal pain, or any other concerning symptoms. Prescriptions: Famotidine [Pepcid 20 mg Tablet] 20 mg PO BID #12 tablet Ondansetron [Zofran Odt 4 mg Tablet] 1 - 2 tab PO Q4H PRN #15 tab.rapdis PRN Reason: For Nausea/Vomiting Referrals: NNAMDI AN MD [ACTIVE STAFF] - Follow up as needed
[2019-05-11] MEDS ORDERED: METOCLOPRAMIDE HCL ORAL SOLN 10 MG/10 ML UDCUP PO ONE (00:16)
[2019-05-11] MEDS ORDERED: MAG HYDROX/AL HYDROX/SIMETH SUSP 30 ML UDCUP PO ONE (00:16)
[2019-05-11] MEDS ORDERED: LIDOCAINE 2% VISCOUS SOLN 15 ML UDCUP PO ONE (00:16)
[2019-05-11] MEDS ORDERED: ONDANSETRON ODT 4 MG TAB (6 TAB/ER DISP) PO PRN (01:09)
[2019-05-11 02:09] VITALS: BP 109/81
== END 2019-05-11 02:16 | disposition home or self-care (01) ==
LOC: ER 22:07
DX: S99.911A Unspecified injury of right ankle, initial encounter (principal); W22.8XXA Striking against or struck by other objects, initial encounter; F10.129 Alcohol abuse with intoxication, unspecified; R11.2 Nausea with vomiting, unspecified; J44.9 Chronic obstructive pulmonary disease, unspecified; R45.1 Restlessness and agitation
CPT/HCPCS: 99283; 96372; 96360; 36415; 80307; 83690; 85025; 80053; 73610; J3490; J2550; J7030

== ENCOUNTER 2019-07-05 01:07 | Emergency (ER) | payer SELFPAY ==
[2019-07-05] MEDS ORDERED: PREDNISONE 20 MG TABLET PO ONE (01:47)
[2019-07-05] MEDS ORDERED: IPRATROPIUM/ALBUTEROL 0.5-2.5 MG/3 ML AMPUL NEB ONE ×2 (01:47→02:18)
[2019-07-05 02:13] LABS: ABSOLUTE BASOPHILS # (AUTO) 0.1 10^3/uL (0.0-0.2); ABSOLUTE EOSINOPHILS # (AUTO) 0.5 10^3/uL (0.0-0.6); ABSOLUTE LYMPHOCYTES (AUTO) 1.8 10^3/uL (0.5-4.7); ABSOLUTE MONOCYTES (AUTO) 0.7 10^3/uL (0.1-1.4); ABSOLUTE NEUT (AUTO) 5.7 10^3/uL (1.7-8.2); BASOPHILS % (AUTO) 0.8 % (0-2); EOSINOPHILS % (AUTO) 5.7 % (0-6); HEMATOCRIT 48.8 % (37.9-51.0); HEMOGLOBIN 16.9 g/dL (13.5-17.0); LYMPHOCYTES % (AUTO) 20.7 % (13-45); MEAN CORPUSCULAR HEMOGLOBIN 29.5 pg (27.0-33.4); MEAN CORPUSCULAR HGB CONC 34.7 g/dL (32.0-36.0); MEAN CORPUSCULAR VOLUME 85 fl (80-97); MONOCYTES % (AUTO) 8.3 % (3-13); PLATELET COUNT 269 10^3/uL (150-450); RED BLOOD COUNT 5.75 10^6/uL (4.35-5.55); RED CELL DISTRIBUTION WIDTH 13.4 % (11.5-14.0); SEGMENTED NEUTROPHILS % (AUTO) 64.5 % (42-78); TOTAL CELLS COUNTED % (AUTO) 100 %; WHITE BLOOD COUNT 8.8 10^3/uL (4.0-10.5)
--- NOTE | 2019-07-05 03:30 | ER Document Report ---
ED General - General Chief Complaint: Shortness Of Breath Stated Complaint: DIFFICULTY BREATHING Information source: Patient TRAVEL OUTSIDE OF THE [place] IN LAST 30 DAYS: No - HPI Notes: 44-year-old male history former smoker presents with one-week gradual onset gradually worsening shortness of breath associated with subjective fever chill and scantly productive nonbloody cough and generalized malaise. Patient denied having COPD/asthma history, but then endorses having come to the hospital with breathing problems in the past and having been given "breathing treatments "which resolved symptoms. Patient has not been working in [employer] and does not have any known sick contacts. Patient still eating drinking, able to do ADLs. Patient had no treatment for current symptoms prior to arrival. Patient denies any chest pain, cardiac history, PE risk factors - Related Data Allergies/Adverse Reactions: No Known Allergies Allergy (Verified 07/05/19 01:38) Past Medical History - General Information source: Patient - Social History Smoking Status: Former Smoker Frequency of alcohol use: None Drug Abuse: None Family History: COPD Patient has homicidal ideation: No Pulmonary Medical History: Reports: Hx Asthma - as a child Renal/ Medical History: Denies: Hx Peritoneal Dialysis Psychiatric Medical History: Reports: Hx Depression Past Surgical History: Reports: Hx Herniorrhaphy - as child, Hx Myringotomy, Other - Hemorrhoid removal - Immunizations Hx Diphtheria, Pertussis, Tetanus Vaccination: Yes Review of Systems - Review of Systems Notes: REVIEW OF SYSTEMS: CONSTITUTIONAL : +fever, +chills EENT: + recent cold/sinus symptoms, denies throat pain CARDIOVASCULAR: Denies chest pain, DANIELA RESPIRATORY: + cough, + shortness of breath. GASTROINTESTINAL: Denies abdominal pain, nausea/vomiting. GENITOURINARY: Denies difficulty urinating, painful urination. MUSCULOSKELETAL: Denies neck pain, back pain. SKIN: Denies rash or skin lesions. HEMATOLOGIC : Denies easy bruising or bleeding. LYMPHATIC: Denies swollen, enlarged glands. NEUROLOGICAL: Denies headache, denies change in gait. PSYCHIATRIC: Denies anxiety or stress or depression. Physical Exam - Vital signs Vitals: Temp Pulse Resp BP Pulse Ox 98.8 F 108 H 18 134/95 H 98 07/05/19 01:07 07/05/19 01:07 07/05/19 01:07 07/05/19 01:07 07/05/19 01:07 - Notes Notes: PHYSICAL EXAMINATION: GENERAL: Middle-age male appearing stated age very uncomfortable appearing from dyspnea sitting on stretcher tripoding HEAD: Atraumatic, normocephalic. EYES: Pupils equal round and appropriate constriction, sclera anicteric, conjunctiva are normal. ENT: nares patent, moist mucous membranes. NECK: Normal range of motion, supple without lymphadenopathy LUNGS: Tripoding, speaking in short sentences, no drooling, no delirium, tachypneic with increased accessory muscle use, decreased air movement diffusely with expiratory wheezing and scattered rhonchi HEART: Regular rate and rhythm without murmurs ABDOMEN: Soft, nontender, no guarding, no masses, no CVAT EXTREMITIES: Normal range of motion, no pitting or edema. No cyanosis. NEUROLOGICAL: Awake, alert, conversing appropriately, moves all extremities spontaneously. PSYCH: Normal mood, normal affect. SKIN: Warm, Dry, normal turgor, no rashes or lesions noted. Course - Re-evaluation Re-evalutation: 07/05/19 03:29 Patient initially in respiratory distress on arrival. Presentation concerning for possible COVID-19 versus community-acquired pneumonia versus COPD exacerbation. Likely that patient has underlying COPD that he is not aware of when discussing his respiratory history. After giving initial DuoNeb patient dramatically improved which is consistent with COPD that was completely untreat ed until ED arrival. Second DuoNeb was given and now patient sleeping comfortably with good air movement on exam and scant expiratory wheezing and normal work of breathing satting 98% on room air. Patient tested for COVID and instructed to isolate until results available. Will discharge with COPD treatment and PCP follow-up. - Vital Signs Vital signs: Temp Pulse Resp BP Pulse Ox 98.0 F 98 12 98/72 L 99 07/05/19 03:56 07/05/19 03:56 07/05/19 03:56 07/05/19 03:56 07/05/19 03:56 - Laboratory Result Diagrams: 07/05/19 01:20 Laboratory results interpreted by me: 07/05/19 01:20 RBC 5.75 H Discharge - Discharge Clinical Impression: COPD exacerbation Condition: Good Disposition: HOME, SELF-CARE Additional Instructions: Chronic Obstructive Lung Disease You symptoms are likely due to chronic obstructive lung disease (COPD). The symptoms come from emphysema (damage to small airways, with trapping of air in large sacks in the lung) and chronic bronchitis (repeated infection and damage to larger airways). The cause is almost always cigarette smoking, although dust exposure, asthma, and infections contribute. You should avoid fumes, dust, and smoke (especially tobacco smoke). Your condition will flare from time to time. There is no cure, but the symptoms can be treated. Bronchodilators (asthma medicine) are often helpful. Antibiotics help when infection is present. When shortness of breath is severe, we may prescribe cortisone medication. If medicine doesn't help enough, we can arrange for you to have an oxygen tank at home. Notify your doctor at once if sputum becomes thick, foul, or bloody, if you develop a fever or chest pain, or if your shortness of breath worsens. Patient was provided with discharge information including: As a person under investigation for Covid 19, the [facility], division of public health advises you to adhere to the following guidance until your test results are reported to you. If your test result is positive, you will receive additional information from your provider and your local health department at that time. Remain at home until you are cleared by the health provider or public health authorities. Keep a log of visitors to your home, notify any visitors to your home of your isolation status. If you plan to move to a new address or leave the [facility], notify the local health department in your County. Call your doctor or seek care if you have an urgent medical need. Before seeking medical care, call ahead to get instructions from the provider before arriving at the medical office clinic or hospital. Notify them that you are being tested for the virus that causes Covid 19 so that arrangements can be made, as necessary, to prevent transmission to others in the healthcare setting. Next, notify the local health department in your county. If a medical emergency arises and you need to call 911, inform the first responders that you are being tested for the virus that causes Covid 19. Next, notify the local health department in your county. Take albuterol every 4 hours for the next 4 days. Take prednisone as prescribed for the next 4 days. Complete full course of antibiotics. Follow-up with primary doctor within 3 days. If at any point you are feeling worse, worsening shortness of breath, confusion, fainting, inability to keep down liquids by mouth, or any other worsening or alarming symptoms return to ED immediately. Prescriptions: Prednisone [Deltasone 20 mg Tablet] 2 tab PO DAILY 4 Days #8 tablet Doxycycline Monohydrate 100 mg PO BID #20 capsule Albuterol Sulfate [Proair HFA Inhalation Aerosol 8.5 gm MDI] 2 puff IH Q4H PRN #1 mdi PRN Reason:
[2019-07-05] MEDS ORDERED: DOXYCYCLINE HYCLATE 100 MG TABLET PO ONE (03:34)
--- NOTE | 2019-07-05 03:47 | RADIOLOGY REPORT (SQ) ---
AP Portable chest: 07/05/2019 2:45 AM CDT History: 44-year old patient with dyspnea. Comparison: Chest radiograph performed 07/05/2019. Findings: The cardiomediastinal silhouette is normal in size. No pneumothorax is seen. No acute airspace opacities are seen. No discrete pleural effusion is apparent. Impression: No acute airspace opacities are seen.
[2019-07-05 03:58] VITALS: BP 98/72
== END 2019-07-05 03:56 | disposition home or self-care (01) ==
LOC: ER 01:07
DX: J44.1 Chronic obstructive pulmonary disease with (acute) exacerbation (principal); R06.02 Shortness of breath; R50.9 Fever, unspecified; R05 Cough; R53.81 Other malaise; Z87.891 Personal history of nicotine dependence; Z20.828 Contact with and (suspected) exposure to other viral communicable diseases
CPT/HCPCS: 94640 ×2; 99285; 36415; 85025; 87635; 71045; J7512; J7620